=== PATIENT | male | born 1980 | race African-American/Black ===

== ENCOUNTER 2022-03-31 17:48 | Emergency (ER) | payer OTHER ==
[~2022-03-31] VITALS: Ht 177.8 cm; Wt 84.0 kg
[2022-03-31] MEDS ORDERED: METOCLOPRAMIDE HCL 10MG/2ML VIAL IV ONE (18:30)
[2022-03-31] MEDS ORDERED: DIPHENHYDRAMINE 50MG/ML VIAL IV ONE (18:30)
[2022-03-31] MEDS ORDERED: SODIUM CHLORIDE 0.9% 1,000 ML IV ONE (18:30)
[2022-03-31] MEDS ORDERED: KETOROLAC 15MG/ML VIAL IV ONE (18:30)
[2022-03-31 21:51] VITALS: BP 130/65
== END 2022-03-31 21:45 | disposition home or self-care (01) ==
LOC: ER 17:48
DX: G43.909 Migraine, unspecified, not intractable, without status migrainosus (principal); V49.9XXA Car occupant (driver) (passenger) injured in unspecified traffic accident, initial encounter; Y93.89 Activity, other specified; Y92.410 Unspecified street and highway as the place of occurrence of the external cause
CPT/HCPCS: 70450; 72125; 72131; 96361; 96374; 96375; 99284; J1200; J1885; J2765; J7030